=== PATIENT | male | born 1965 | race Caucasian/White ===

== ENCOUNTER 2018-11-12 07:48 | Day surgery (SDC) | payer OTHER ==
[2018-11-12] MEDS ORDERED: Sodium Chloride 0.9% 10 ML Syringe FLUSH PRN (08:00)
[2018-11-12] MEDS: Sodium Chloride 0.9% 1,000 ML IV SCH (08:34)
[2018-11-12] MEDS ORDERED: Midazolam 1 MG/ML 2 ML SDV ONE (09:08)
[2018-11-12] MEDS ORDERED: Propofol 200 MG/20 ML SDV ONE ×2 (09:08→10:02)
[2018-11-12] MEDS ORDERED: Propofol 200 MG/20 ML SDV IV ONE (09:32)
[2018-11-12] MEDS ORDERED: Midazolam 1 MG/ML 2 ML SDV IV ONE (09:32)
--- NOTE | 2018-11-12 10:41 | PCM.PRNOTE ---
- Free Text/Narrative Note: PROCEDURE PERFORMED: Colonoscopy PRE-PROCEDURE DIAGNOSIS/INDICATION FOR PROCEDURE: Change in bowel habits, intermittent abdominal pain CONSENT: Informed consent was obtained prior to the procedure after discussion of the risks (including pain, bleeding, infection, perforation, missed polyps, inability to completely remove polyps necessitating repeat colonoscopy, adverse reaction to anesthesia, cardiovascular event), benefits and alternatives and expected outcomes. The patient expressed understanding and wished to proceed. Verbal consent given and consent form signed. PROCEDURAL PAUSE: Completed SEDATION: Per anesthesia DESCRIPTION OF PROCEDURE: Patient was placed in the left lateral decubitus position. After adequate sedation and anesthetic was administered, a rectal exam was performed revealing external hemorrhoids without active bleeding. A lubricated Olympus Video Colonoscope was inserted into the rectum and air insufflation was performed. The colonoscope was advanced through the rectum, sigmoid, descending, transverse , and ascending colon without difficulties. The cecum was reached and the ileocecal valve as well as the appendiceal orifice were identified and pictorially documented. After adequate visualization of the cecum, the scope was withdrawn, giving 360-degree views of the colonic mucosa and retroflexion was performed in the rectum with the following findings noted: Ileocecal valve: Normal Cecum: Normal Ascending colon: Normal Hepatic flexure: Normal Transverse colon: Normal Splenic flexure: Normal Descending colon: Normal Sigmoid colon: Normal Rectum: Internal hemorrhoids without active bleeding The scope was straightened, air suction performed, and the scope withdrawn without complication. Preparation adequacy good. IMPRESSION: Colonoscopy performed revealing internal and external hemorrhoids. PLAN: Repeat colorectal cancer screening in 10 years is recommended. Encourage increased fiber diet and bowel regimen to ensure 1-2 soft bowel movements per day.
[2018-11-12 11:54] VITALS: BP 115/64
== END 2018-11-12 11:45 | disposition home or self-care (01) ==
LOC: KA.SDS 07:48
PROVIDERS: ATTEND Family Medicine
DX: R19.4 Change in bowel habit (principal); R10.9 Unspecified abdominal pain; K64.4 Residual hemorrhoidal skin tags; K64.8 Other hemorrhoids; I10 Essential (primary) hypertension; E10.42 Type 1 diabetes mellitus with diabetic polyneuropathy; J45.40 Moderate persistent asthma, uncomplicated; E66.9 Obesity, unspecified; Z68.34 Body mass index [BMI] 34.0-34.9, adult; E78.2 Mixed hyperlipidemia; Z79.4 Long term (current) use of insulin; Z79.899 Other long term (current) drug therapy; Z88.1 Allergy status to other antibiotic agents; Z88.0 Allergy status to penicillin
CPT/HCPCS: 82962; J2250; J2704; J7030

== ENCOUNTER 2020-11-25 06:52 | Day surgery (SDC) | payer BC, OTHER ==
[2020-11-25] MEDS ORDERED: Midazolam 1 MG/ML 2 ML SDV IV ONE (06:53)
[2020-11-25] MEDS ORDERED: Propofol 200 MG/20 ML SDV IV ONE (06:53)
[2020-11-25] MEDS ORDERED: Sodium Chloride 0.9% 10 ML Syringe FLUSH PRN (07:00)
[2020-11-25] MEDS ORDERED: Sodium Chloride 0.9% 1,000 ML IV SCH (07:00)
[2020-11-25] MEDS ORDERED: EPINEPHrine 1:10,000 1 MG/10 ML Syringe ONE (08:02)
[2020-11-25] MEDS ORDERED: Propofol 200 MG/20 ML SDV ONE ×2 (08:08→09:35)
[2020-11-25] MEDS ORDERED: Midazolam 1 MG/ML 2 ML SDV ONE (08:08)
[2020-11-25] MEDS ORDERED: Bupivacaine 0.5%/EPINEPHrine 1:200,000 30 ML SDV ONE (09:12)
[2020-11-25] MEDS ORDERED: Lactated Ringers 1,000 ML ONE (09:36)
--- NOTE | 2020-11-25 09:56 | PCM.OPNOTE ---
- General Post-Op/Procedure Note Date of Surgery/Procedure: 11/25/20 Operative Procedure(s): Colonoscopy and infrared coagulation of internal hemorrhoids. Findings: The patient had a normal colonoscopy. He was also found to have moderately enlarged internal hemorrhoids at the 3:00 and 7:00 and 11:00 positions. IRC was performed of the internal hemorrhoids at the 3 o'clock position. Anesthesia Technique: MAC Primary Surgeon: Chon Chilel Condition: Good Free Text/Narrative:: INFORMED CONSENT: Patient is here today for elective colonoscopy. All aspects of this procedure have been discussed with the patient. All possible complications also, including possibility of perforation, infection, pain, bleeding and unknown complications. In the event of perforation patient may need to have abdominal exploration, colon resection, colostomy and even was discussed. Anesthetic complications were handled by anesthesia department. The patient understands fully well. Patient did not have any further questions for me at the end of my interview. The patient wishes for me to proceed. PREOPERATIVE DIAGNOSIS/INDICATIONS: [Rectal bleeding, screening] POSTOPERATIVE DIAGNOSIS: [Normal colonoscopy, moderately enlarged internal hemorrhoids at the 3:00 7:00 11:00 positions.] INSTRUMENT USED: Olympus videocolonoscope. ASA CLASSIFICATION: [2] ANESTHESIA: Continuous EKG, oximetry and intermittent blood pressure and respiratory monitoring were performed throughout the procedure. IV Versed and Fentanyl were administered. PROCEDURE PERFORMED: Colonoscopy POSITIONS OF PATIENT: Left lateral. RECTUM: Normal. SIGMOID COLON: Normal. DESCENDING COLON: Normal. SPLENIC FLEXURE: Normal. TRANSVERSE COLON: Normal. HEPATIC FLEXURE: Normal. ASCENDING COLON: Normal. CECUM: Normal. ILEOCECAL VALVE: Normal. BIOPSY: None. TOLERANCE: Excellent. COMPLICATIONS: None. The scope was withdrawn, the ano Anoscope was introduced and IRC was performed of the internal hemorrhoidal mass at the 3 o'clock position without difficulty or complication. Follow-up in the clinic in 1 month.
[2020-11-25 11:52] VITALS: BP 132/79; PULSE 82
== END 2020-11-25 11:00 | disposition home or self-care (01) ==
LOC: KA.SDS 06:52
PROVIDERS: ATTEND Family Medicine
DX: K64.8 Other hemorrhoids (principal); J45.40 Moderate persistent asthma, uncomplicated; E78.2 Mixed hyperlipidemia; E10.42 Type 1 diabetes mellitus with diabetic polyneuropathy; E66.9 Obesity, unspecified; I10 Essential (primary) hypertension; Z79.899 Other long term (current) drug therapy; Z88.1 Allergy status to other antibiotic agents; Z90.49 Acquired absence of other specified parts of digestive tract; Z90.89 Acquired absence of other organs; Z68.31 Body mass index [BMI] 31.0-31.9, adult
CPT/HCPCS: 00812; 82962; J2250; J2704; J7030

== ENCOUNTER 2023-04-09 09:15 | Emergency (ER) | payer BC ==
[2023-04-09 09:50] LABS: BASOPHILS ABSOLUTE AUTO 0.05 10^3/uL (0.00-0.10); BASOPHILS PERCENT AUTO 0.7 % (0.0-1.0); EOSINOPHILS ABSOLUTE AUTO 0.46 10^3/uL (0.10-0.30); EOSINOPHILS PERCENT AUTO 6.2 % (1.0-3.0); HEMATOCRIT 37.2 % (40.0-52.0); HEMOGLOBIN 12.9 g/dL (13.0-17.0); IMMATURE GRAN ABSOLUTE AUTO 0.02 10^3/uL (0.00-0.50); IMMATURE GRAN PERCENT AUTO 0.3 % (0.0-5.0); LYMPHOCYTES ABSOLUTE AUTO 1.72 10^3/uL (1.00-4.00); LYMPHOCYTES PERCENT AUTO 23.3 % (20.0-40.0); MEAN CORPUSCULAR HEMOGLOBIN 28.4 pg (27.0-31.0); MEAN CORPUSCULAR HGB CONC 34.7 g/dL (32.0-36.0); MEAN CORPUSCULAR VOLUME 81.9 fL (82.0-92.0); MEAN PLATELET VOLUME 9.4 fL (7.4-10.4); MONOCYTES ABSOLUTE AUTO 0.68 10^3/uL (0.10-0.80); MONOCYTES PERCENT AUTO 9.2 % (2.0-8.0); NEUTROPHILS ABSOLUTE AUTO 4.45 10^3/uL (2.50-7.00); NEUTROPHILS PERCENT AUTO 60.3 % (50.0-70.0); PLATELET COUNT,PLT 218 10^3/uL (150-400); RED BLOOD CELL COUNT 4.54 10^6/uL (4.50-6.00); RED CELL DISTRIBUTION WIDTH 12.8 % (11.5-14.5); WHITE BLOOD CELL COUNT,WBC 7.38 10^3/uL (5.00-10.00)
[2023-04-09] MEDS ORDERED: Aspirin 81 MG Tab.Chew ONE (09:58)
[2023-04-09] MEDS ORDERED: Aspirin 81 MG Tab.Chew PO ONE (10:00)
[2023-04-09] MEDS ORDERED: Albuterol 0.083% 2.5 MG/3 ML Neb Soln NEB ONE ×2 (10:01→11:35)
[2023-04-09] MEDS ORDERED: Pantoprazole 40 MG Vial IVPUSH ONE (10:05)
[2023-04-09 10:06] LABS: CALCIUM 8.6 mg/dL (8.7-10.3); CARBON DIOXIDE,CO2 23.7 mmol/L (21.0-32.0); CREATININE 0.74 mg/dL (0.51-1.17); EST CRCL DRUG DOSING (CG) 126.26 mL/min
[2023-04-09] MEDS ORDERED: Sodium Chloride 0.9% 1,000 ML IV ONE (10:58)
[2023-04-09 11:01] LABS: ANION GAP 13.9 mmol/L (5-15)
[2023-04-09 11:02] LABS: POTASSIUM,K 3.6 mmol/L (3.5-4.5)
[2023-04-09 12:03] VITALS: BP 147/80; PULSE 99
== END 2023-04-09 12:23 | disposition home or self-care (01) ==
LOC: KA.ED 09:15
DX: J45.901 Unspecified asthma with (acute) exacerbation (principal); I10 Essential (primary) hypertension; E78.00 Pure hypercholesterolemia, unspecified; Z88.0 Allergy status to penicillin; Z79.82 Long term (current) use of aspirin; Z79.899 Other long term (current) drug therapy; Z79.4 Long term (current) use of insulin
CPT/HCPCS: 36415; 71045; 80048; 82947; 84484; 85025; 85379; 93010; 96361; 96374; 99284; 99285-25; A9270-GY; C9113; J7030; J7613-GY